=== PATIENT | female | born 1945 | race Caucasian/White ===

== ENCOUNTER 2021-08-08 09:14 | Outpatient (CLI) | payer MEDICARE, SELFPAY ==
[2021-08-08 10:02] LABS: Prothrombin Time 12.6 Seconds (11.1-14.7)
== END 2021-08-08 09:15 | disposition home or self-care (01) ==
PROVIDERS: PCP Family Medicine; Visit Provider Nurse Practitioner Family
DX: Z51.81 Encounter for therapeutic drug level monitoring (principal); Z79.899 Other long term (current) drug therapy
CPT/HCPCS: 36415; 85610

== ENCOUNTER 2022-03-15 14:12 | Outpatient (CLI) | payer MEDICARE, SELFPAY ==
--- NOTE | 2022-03-15 | ECG_ITS ---
Measurements Intervals [place] Rate: 73 P: 46 DC: 162 QRS: -34 QRSD: 135 T: 45 QT: 459 QTc: 507 Interpretive Statements SINUS RHYTHM LEFT AXIS DEVIATION [QRS AXIS < -30] RIGHT BUNDLE BRANCH BLOCK [120+ ms QRS DURATION, UPRIGHT V1, 40+ ms S IN I/aVL/V4/V5/V6] LEFT VENTRICULAR HYPERTROPHY AND ST-T CHANGE [VOLTAGE CRITERIA PLUS ST/T ABNORMALITY] ABNORMAL ECG NO PREVIOUS ECG AVAILABLE FOR COMPARISON Electronically Signed On 03-15-2022 17:58:19 CDT by Slick Barnett M.D.
[2022-03-15 14:52] LABS: Basophils Percent Auto 0.4 % (0.2-1.2); Eosinophils Percent Auto 0.9 % (0-4.4); Hemoglobin 9.5 g/dL (12.0-15.0); Immature Granulocyte Absolute 0.12 K/mm3 (0.00-0.031); Immature Granulocyte Percent A 2.7 % (0-0.5); Lymphocytes Absolute Auto 1.83 K/mm3 (0.9-3.2); Lymphocytes Percent Auto 41.1 % (18.3-44.2); Mean Corpuscular HGB Conc 33.9 g/dl (32-36); Mean Corpuscular Hemoglobin 38.2 pg (26-34); Mean Corpuscular Volume 112.4 fl (80-100); Mean Platelet Volume 9.3 fl (7.4-10.4); Monocytes Absolute Auto 0.6 K/mm3 (0.1-0.6); Monocytes Percent Auto 12.4 % (2.6-8.5); Neutrophils Absolute Auto 1.9 K/mm3 (1.3-6.7); Neutrophils Percent Auto 42.5 % (45.5-73.1); Platelet Count Result 124 k/mm3 (150-375); Red Blood Count 2.49 M/mm3 (4.2-5.4); Red Cell Distribution Width 13.2 % (11.5-14.5); White Blood Count 4.5 K/mm3 (4.5-10.0)
[2022-03-15 15:05] LABS: Anion Gap 4 mmol/L (8-16); Blood Urea Nitrogen 19 mg/dL (7-17); CRP 1.2 mg/dL (<1.0); Calcium 9.3 mg/dL (8.4-10.2); Carbon Dioxide 33 mmol/L (22-30); Chloride 103 mmol/L (98-107); Estimated Glomerular Filt Rate > 60; Glucose 96 mg/dL (65-110); Potassium 4.5 mmol/L (3.4-5.0); Sodium 140 mmol/L (137-145)
[2022-03-15 16:07] LABS: Erythrocyte Sedimentation Rate 112 mm/hr (0-20)
[2022-03-15 16:32] LABS: Appearance Urine Clear (Clear); Bilirubin Urine Negative (Negative); Blood Urine Negative (Negative); Color Urine Yellow (Yellow); Glucose Urine UA Negative (Negative); Ketones Urine Negative (Negative); Leukocyte Esterase Ur Trace LEU/UL (Negative); Nitrate Urine Negative (Negative); Protein Urine Negative (Negative); Urobilinogen Urine 0.2 mg/dL (<2.0); pH Urine 6.5 (5.0-9.0)
[2022-03-15 16:38] LABS: Mucus Urine Rare /lpf; RBC Urine 0-2 /hpf (0-2); Squamous Epithelial Cell Urine Rare /hpf (Few); WBC Urine 0-3 /hpf
[2022-03-15 16:44] LABS: Add Urine Microscopic? YES
== END 2022-03-15 14:13 | disposition home or self-care (01) ==
LOC: ANHLAB 14:16
PROVIDERS: PCP Family Medicine; Visit Provider Nurse Practitioner Family
DX: Z01.810 Encounter for preprocedural cardiovascular examination (principal); I45.10 Unspecified right bundle-branch block
CPT/HCPCS: 36415; 80048; 81001; 85025; 85652; 86140; 93005

== ENCOUNTER 2022-03-20 16:47 | Outpatient (CLI) | payer MEDICARE, SELFPAY ==
[2022-03-20 17:17] LABS: Basophils Percent Auto 0.3 % (0.2-1.2); Eosinophils Percent Auto 0.8 % (0-4.4); Hematocrit 26.9 % (37.0-47.0); Hemoglobin 9.2 g/dL (12.0-15.0); Immature Granulocyte Percent A 2.5 % (0-0.5); Lymphocytes Absolute Auto 1.69 K/mm3 (0.9-3.2); Lymphocytes Percent Auto 42.6 % (18.3-44.2); Mean Corpuscular HGB Conc 34.2 g/dl (32-36); Mean Corpuscular Hemoglobin 38.2 pg (26-34); Mean Corpuscular Volume 111.6 fl (80-100); Mean Platelet Volume 9.2 fl (7.4-10.4); Monocytes Absolute Auto 0.6 K/mm3 (0.1-0.6); Monocytes Percent Auto 14.1 % (2.6-8.5); Neutrophils Absolute Auto 1.6 K/mm3 (1.3-6.7); Neutrophils Percent Auto 39.7 % (45.5-73.1); Platelet Count Result 137 k/mm3 (150-375); Red Blood Count 2.41 M/mm3 (4.2-5.4); Red Cell Distribution Width 13.2 % (11.5-14.5)
== END 2022-03-20 16:48 | disposition home or self-care (01) ==
PROVIDERS: PCP Family Medicine; Visit Provider Pain Medicine Pain Medicine
DX: Z01.818 Encounter for other preprocedural examination (principal)
CPT/HCPCS: 36415; 85025

== ENCOUNTER 2023-05-02 19:35 | Emergency (ER) | payer MEDICARE, SELFPAY ==
[2023-05-02 19:42] VITALS: BP 142/82; PULSE 102; RESP 15; TEMP 36.6; O2SAT 95
[2023-05-02 21:34] VITALS: BP 147/86; PULSE 65; RESP 18; O2SAT 100
--- NOTE | 2023-05-02 22:44 | ED.SKABFB ---
HPI - Skin/Abscess/Foreign Bdy General Chief complaint: Skin/Abscess/Foreign Body Stated complaint: itching; rash Time Seen by Provider: 05/02/23 22:20 History of Present Illness HPI narrative: 77-year-old female with a history of MDS reports for evaluation of itchiness to the dorsum of her hands that started this morning. Patient states has been constantly itching her hands and has developed purpura secondary to itching. She states there is no rash this morning when she woke up. She went to the pharmacy and has used a whole bottle of hydrocortisone cream on her hands which provides relief for about 15 minutes until the itchiness comes back. She denies new medications, foods, changes in soaps or detergents, new jewelry or watches, fever, neck pain, headache, vision changes or numbness or weakness or tingling, chest pain or shortness of breath, abdominal pain, nausea or vomiting, swelling to her lips or tongue, difficulty breathing. Denies rash anywhere else on her body. She has not started chemotherapy yet for MDS. She follows with heme-onc at [facility] in [place]. Related Data Allergies Allergy/AdvReac Type Severity Reaction Status Date / Time No Known Allergies Allergy Verified 05/02/23 21:38 Review of Systems Review of Systems: CONSTITUTIONAL: Denies fever, chills EYES: Denies visual changes, redness, or discharge. ENT: Denies rhinorrhea, congestion, sore throat, or otalgia. CARDIOVASCULAR: Denies chest pain, palpitations, or edema. RESPIRATORY: Denies cough or dyspnea. GASTROINTESTINAL: Denies abdominal pain, nausea, vomiting, or diarrhea. GENITOURINARY: Denies dysuria or hematuria. SKIN: See HPI MUSCULOSKELETAL: Denies back pain, joint pain, or myalgia. NEUROLOGIC: Denies headache, numbness, dizziness, or weakness. PSYCHIATRIC: Denies anxiety or depression. Exam Narrative: GENERAL: Well-appearing, in no acute distress. HEAD: Normocephalic EYES: PERRLA ENT: Nares clear. Mucous membranes moist. Oropharynx without tonsillar hypertrophy exudate or other lesions. NECK: Supple. No nuchal rigidity. CHEST: No respiratory distress. Clear to auscultation, no adventitious breath sounds. HEART: Regular rate and rhythm. No murmur heard. Normal peripheral pulses. ABDOMEN: Soft, nontender, normal active bowel sounds. EXTREMITIES: Normal range of motion. No edema. SKIN: Scattered petechiae to the dorsum of the left hand and wrist. Small amount of petechiae to the dorsum of the distal right radius. No disclamation, negative Nikolsky. No papules. Radial pulse 2+. Sensation intact. [employer] strength 5/5. NEURO: No focal deficits. Alert and oriented x3. PSYCH: Normal mood and affect. Course Vital Signs Vital signs: Vital Signs Temperature 97.8 F 05/02/23 19:42 Pulse Rate 102 H 05/02/23 19:42 Respiratory Rate 15 05/02/23 19:42 Blood Pressure 142/82 H 05/02/23 19:42 Pulse Oximetry 95 05/02/23 19:42 Temperature 97.8 F 05/02/23 19:42 Pulse Rate 65 05/02/23 21:34 Respiratory Rate 18 05/02/23 21:34 Blood Pressure 147/86 H 05/02/23 21:34 Pulse Oximetry 100 05/02/23 21:34 MDM - Skin/Abscess/Foreign Bdy MDM Narrative Medical decision making narrative: 77-year-old female with a history of MDS reports for evaluation of itchiness to the dorsum of her hands that started this morning. See HPI for further history. Vitals reveal mildly elevated blood pressure and heart rate of 102 which is since resolved, otherwise stable. Exam significant for scattered petechiae to the dorsum of the hands. She is neurovascularly intact. No meningeal signs. No known new exposures or contact irritants. CBC and CMP obtained given patient's history of MDS which shows WBC of 2.9, consistent with MDS. Chemistries are unremarkable, bilirubin normal. Platelets normal at 182. Patient received IV dexamethasone and Benadryl with improvement of symptoms. Plan to treat for contact dermatitis with topical
[2023-05-02] MEDS: diphenhydrAMINE HCl INJ 50 MG/ML VIAL 25 MG IV PUSH (23:18)
[2023-05-02 23:20] LABS: Basophils Absolute Auto 0.1 K/mm3 (0.0-0.1); Basophils Percent Auto 1.7 % (0.2-1.2); Eosinophils Absolute Auto 0.1 K/mm3 (0-0.3); Eosinophils Percent Auto 4.2 % (0-4.4); Hematocrit 40.6 % (37.0-47.0); Hemoglobin 14.3 g/dL (12.0-15.0); Immature Granulocyte Absolute 0.01 K/mm3 (0.00-0.031); Immature Granulocyte Percent A 0.3 % (0-0.5); Lymphocytes Absolute Auto 0.91 K/mm3 (0.9-3.2); Lymphocytes Percent Auto 31.5 % (18.3-44.2); Mean Corpuscular HGB Conc 35.2 g/dl (32-36); Mean Corpuscular Hemoglobin 33.8 pg (26-34); Mean Platelet Volume 9.2 fl (7.4-10.4); Monocytes Absolute Auto 0.1 K/mm3 (0.1-0.6); Monocytes Percent Auto 3.5 % (2.6-8.5); Neutrophils Absolute Auto 1.7 K/mm3 (1.3-6.7); Neutrophils Percent Auto 58.8 % (45.5-73.1); Platelet Count Result 182 k/mm3 (150-375); Red Blood Count 4.23 M/mm3 (4.2-5.4); Red Cell Distribution Width 14.2 % (11.5-14.5); White Blood Count 2.9 K/mm3 (4.5-10.0)
[2023-05-02 23:31] LABS: Alanine Aminotransferase 35 U/L (6-35); Albumin Level 4.3 g/dL (3.5-5.1); Alkaline Phosphatase 84 U/L (38-126); Anion Gap 4 mmol/L (8-16); Aspartate Amino Transferase 26 U/L (14-36); Bilirubin,Total 0.9 mg/dL (0.2-1.3); Blood Urea Nitrogen 22 mg/dL (7-17); Calcium 9.3 mg/dL (8.4-10.2); Carbon Dioxide 29 mmol/L (22-30); Chloride 103 mmol/L (98-107); Estimated CRCL calculation 53 ml/min; Estimated Glomerular Filt Rate > 60; Glucose 102 mg/dL (65-110); Potassium 3.7 mmol/L (3.4-5.0); Sodium 136 mmol/L (137-145)
== END 2023-05-03 00:18 | disposition home or self-care (01) ==
PROVIDERS: Emergency Provider Physician Assistant
DX: L25.9 Unspecified contact dermatitis, unspecified cause (principal); D46.9 Myelodysplastic syndrome, unspecified
CPT/HCPCS: 36415; 80053; 85025; 96374; 96375; 99284; J1100; J1200

== ENCOUNTER 2025-04-07 09:52 | Outpatient (CLI) | payer MEDICARE, SELFPAY ==
--- NOTE | ~2025-04-07 | MR_ITS ---
Procedure: MR shoulder LT wo con Ordering provider: TYLER ALMAZAN, GONZALO History: . Chronic L shoulder pain . Comparison: Technique: MRI left shoulder without contrast. FINDINGS: ACROMIOCLAVICULAR JOINT: Mild arthropathy. No medial coracoacromial arch stenosis. ROTATOR CUFF: The supraspinatus tendon shows bright signal at the insertion undersurface with highly suggestive of tendinosis versus partial tear.. No subacromial subdeltoid bursitis. No evidence for brower bcoracoid impingement or subscapularis tendinosis or tear. PROXIMAL BICEPS TENDON: The proximal biceps tendon and biceps labral complex are normal. The rotator interval is normal as visualized without intraarticular contrast. INFERIOR GLENOHUMERAL LIGAMENT COMPLEX: Normal anterior and posterior bands. Normal axillary pouch. LABRUM: The superior labrum is normal. The anteroinferior labrum is normal. The posterior labrum isaiah ws bright signal suggestive of tear versus degenerative changes.. BONES: Mild degenerative osseous cysts are seen involving the greater tuberosity of the humerus. Mar row signal is otherwise normal. GLENOHUMERAL JOINT SPACE: The glenohumeral joint space is moderately narrowed with irregularity of th e cartilage.. No joint effusion. SUPERFICIAL AND DEEP SOFT TISSUES: Otherwise, normal. No paralabral cyst. IMPRESSION: Tendinosis versus partial tear in the supraspinatus tendon at the insertion into the humeral head. Bright signal in the posterior meniscus which is suggestive of a tear versus degenerative changes. Moderate osteoarthritic changes of the glenohumeral joint with irregularity of the cartilage. Mild to moderate osteoarthritic changes of the acromioclavicular joint. Reviewed, dictated and finalized at location A. IMPRESSION: Tendinosis versus partial tear in the supraspinatus tendon at the insertion int o the humeral head. Bright signal in the posterior meniscus which is suggestive of a tear versus de generative changes. Moderate osteoarthritic changes of the glenohumeral joint with irregularity of the cartilage. Mild to moderate osteoarthritic changes of the acromioclavicular joint.
== END 2025-04-07 09:53 | disposition home or self-care (01) ==
LOC: MICIMG 09:53
PROVIDERS: PCP Physician Assistant; Visit Provider Physician Assistant
DX: M19.012 Primary osteoarthritis, left shoulder (principal)
CPT/HCPCS: 73221